=== PATIENT | male | born 1995 | race Caucasian/White ===

== ENCOUNTER 2018-09-18 15:42 | Emergency (ER) | payer MEDICAID, OTHER ==
[~2018-09-18] VITALS: Ht 172.7 cm; Wt 72.6 kg
[2018-09-18 16:04] VITALS: BP 145/71
== END 2018-09-18 20:53 | disposition home or self-care (01) ==
LOC: ER 15:53
DX: K59.00 Constipation, unspecified (principal)
CPT/HCPCS: 74176